=== PATIENT | female | born 1970 | race Caucasian/White ===

== ENCOUNTER → 2019-10-28 | Outpatient (REF) | payer OTHER | LOC: M LAB REF 10:21 | PROVIDERS: ATTEND Dermatology | DX: C44.319 Basal cell carcinoma of skin of other parts of face (principal) ==

== ENCOUNTER → 2021-07-25 | Outpatient (REF) | payer OTHER | LOC: M LAB REF 13:43 | PROVIDERS: ATTEND Dermatology | DX: E65 Localized adiposity (principal) ==

== ENCOUNTER → 2021-11-08 | Outpatient (REF) | payer OTHER | LOC: M SFHCDERM 13:57 | PROVIDERS: ATTEND Physician Assistant | DX: D48.5 Neoplasm of uncertain behavior of skin (principal) ==

== ENCOUNTER → 2024-02-16 | Outpatient (REF) | payer OTHER | LOC: M SFHCDERM 17:06 | PROVIDERS: ATTEND Physician Assistant | DX: C44.612 Basal cell carcinoma of skin of right upper limb, including shoulder (principal) ==